=== PATIENT | male | born 1970 | race Caucasian/White ===

== ENCOUNTER 2018-03-07 14:02 | Outpatient (CLI) | payer BC ==
[2018-03-07 14:18] LABS: BASOPHILS # (AUTO) 0.1 10^3/uL (0.0-0.1); BASOPHILS % (AUTO) 0.7 %; EOSINOPHILS # (AUTO) 0.3 10^3/uL (0.0-0.7); EOSINOPHILS % (AUTO) 2.9 %; HGB - HEMOGLOBIN 14.5 g/dL (14.0-18.0); LYMPHOCYTES # (AUTO) 2.6 10^3/uL (1.5-3.5); LYMPHOCYTES % (AUTO) 27.4 %; MEAN CORPUSCULAR HGB CONC 34.3 g/dL (32.0-36.0); MEAN CORPUSCULAR VOLUME 87.4 fL (80.0-94.0); MEAN PLATELET VOLUME 7.3 fL (7.4-11.4); MONOCYTES # (AUTO) 0.7 10^3/uL (0.0-1.0); MONOCYTES % (AUTO) 7.8 %; NEUTROPHILS # (AUTO) 5.8 10^3/uL (1.5-6.6); NEUTROPHILS % (AUTO) 61.2 %; PLT - PLATELET COUNT 285 10^3/uL (130-450); RED BLOOD COUNT 4.82 10^6/uL (4.70-6.10); RED CELL DISTRIBUTION WIDTH 12.8 % (12.0-15.0); WHITE BLOOD COUNT 9.5 x10^3/uL (4.8-10.8)
[2018-03-07 14:28] LABS: ALBUMIN 4.5 g/dL (3.2-5.5); ALBUMIN/GLOBULIN RATIO 1.5 (1.0-2.2); BILIRUBIN,TOTAL 1.1 mg/dL (0.2-1.0); CALCIUM 9.4 mg/dL (8.5-10.3); CREATININE 0.9 mg/dL (0.6-1.2); TOTAL PROTEIN 7.6 g/dL (6.7-8.2)
== END 2018-03-07 14:03 | disposition home or self-care (01) ==
LOC: LAB 14:02
PROVIDERS: ATTEND Specialist
DX: R22.1 Localized swelling, mass and lump, neck (principal)
CPT/HCPCS: 36415; 80053; 85025; 85651

== ENCOUNTER 2018-03-07 20:42 | Outpatient (CLI) | payer BC ==
--- NOTE | 2018-03-07 22:14 | Ultrasound Report ---
Reason: NECK MASS RIGHT Procedure Date: 03/07/2018 Accession Number: [id number] / [id number] Procedure: US - Head or Neck Soft Tissue CPT Code: FULL RESULT: EXAM: NECK ULTRASOUND EXAM DATE: 03/07/2018 09:05 PM. CLINICAL HISTORY: NECK MASS RIGHT. COMPARISON: None. TECHNIQUE: Real-time sonographic imaging was performed by the certified ophthalmic surgical assistant utilizing color-flow. Multiple publications sales representative static images were saved for review. FINDINGS: Complex heterogeneous mass is seen in the right submandibular area measuring 2.0 x 3.4 x 2.3 cm. Vascularity is seen within the mass. No fluid collection is identified. IMPRESSION: 1. Complex heterogeneous mass with blood flow, possibly within the right submandibular gland, measuring 2.0 x 3.4 x 2.3 cm. This could represent neoplasm. 2. Recommend CT or MRI for further evaluation. RADIA
== END 2018-03-07 20:43 | disposition home or self-care (01) ==
LOC: DI 20:42
PROVIDERS: ATTEND Specialist
DX: R22.1 Localized swelling, mass and lump, neck (principal)
CPT/HCPCS: 36415; 76536; 80053; 85025; 85651

== ENCOUNTER 2018-03-09 08:45 | Emergency (ER) | payer BC ==
[2018-03-09] MEDS ORDERED: IOPAMIDOL-300 100 ML VIAL IVP ONE ×2 (08:46→10:51)
[2018-03-09] MEDS ORDERED: fentaNYL 100 MCG/2 ML VIAL IVP STA (09:26)
[2018-03-09 09:40] LABS: BASOPHILS # (AUTO) 0.1 10^3/uL (0.0-0.1); BASOPHILS % (AUTO) 0.8 %; EOSINOPHILS # (AUTO) 0.3 10^3/uL (0.0-0.7); EOSINOPHILS % (AUTO) 3.8 %; HGB - HEMOGLOBIN 14.9 g/dL (14.0-18.0); LYMPHOCYTES # (AUTO) 2.4 10^3/uL (1.5-3.5); LYMPHOCYTES % (AUTO) 33.5 %; MEAN CORPUSCULAR HEMOGLOBIN 29.9 pg (27.0-31.0); MEAN CORPUSCULAR HGB CONC 34.7 g/dL (32.0-36.0); MEAN CORPUSCULAR VOLUME 86.1 fL (80.0-94.0); MEAN PLATELET VOLUME 7.2 fL (7.4-11.4); MONOCYTES # (AUTO) 0.6 10^3/uL (0.0-1.0); MONOCYTES % (AUTO) 8.6 %; NEUTROPHILS # (AUTO) 3.9 10^3/uL (1.5-6.6); NEUTROPHILS % (AUTO) 53.3 %; PLT - PLATELET COUNT 271 10^3/uL (130-450); RED CELL DISTRIBUTION WIDTH 12.9 % (12.0-15.0); WHITE BLOOD COUNT 7.3 x10^3/uL (4.8-10.8)
[2018-03-09] MEDS ORDERED: IOPAMIDOL-300 100 ML VIAL ONE (09:40)
[2018-03-09 09:52] LABS: INR 1.1 (0.8-1.2); PT - PROTHROMBIN TIME 12.2 secs (9.9-12.6)
[2018-03-09 09:57] LABS: ALBUMIN 4.6 g/dL (3.2-5.5); ALBUMIN/GLOBULIN RATIO 1.4 (1.0-2.2); CALCIUM 9.8 mg/dL (8.5-10.3); CREATININE 0.9 mg/dL (0.6-1.2); TOTAL PROTEIN 7.8 g/dL (6.7-8.2)
[2018-03-09 10:15] LABS: THYROID STIMULATING HORMONE 5.06 uIU/mL (0.34-5.60)
[2018-03-09 10:17] LABS: FREE T4 (FREE THYROXINE) 0.65 ng/dL (0.58-1.64)
--- NOTE | 2018-03-09 11:01 | ED Physician Documentation ---
History of Present Illness - Stated complaint Stated Complaint: LUMP ON NECK/PX - Chief complaint Chief Complaint: Heent - Additonal information Additional information: 48-year-old male presents the emergency department with increasing pain and swelling of his right neck. The patient noticed a mass under his right lower jaw 7 days ago and the pain and swelling have significantly increased. The patient reports trouble opening his mouth fully. The patient denies no change in his voice. The patient is able to swallow. Symptoms are described as severe. No triggering factors. No relieving factors. The patient had an ultrasound performed yesterday as an outpatient and was recommended to have a CT scan to further evaluate the abnormality seen on ultrasound. No other associated symptoms. No radiation of the pain Review of Systems Constitutional: denies: Fever, Chills Eyes: denies: Discharge Ears: denies: Ear pain Nose: denies: Congestion Throat: denies: Sore throat Cardiac: denies: Chest pain / pressure Respiratory: denies: Cough GI: denies: Abdominal Pain : denies: Dysuria Skin: denies: Rash Musculoskeletal: reports: Neck pain Neurologic: denies: Generalized weakness Immunocompromised: denies: Chemotherapy PD PAST MEDICAL HISTORY - Past Surgical History Past Surgical History: No General: Other - Present Medications Home Medications: Ambulatory Orders Medication Instructions Recorded Confirmed Doxycycline Hyclate 100 mg PO DAILY #7 capsule 01/09/16 Amox/Clav 875/125 [Augmentin] 1 each PO Q12H #20 tablet 03/09/18 HYDROcod/ACETAM 5/325 [[place] 5/325] 1 each PO Q6H PRN #20 tablet 03/09/18 predniSONE [Prednisone] 60 mg PO DAILY #10 tablet 03/09/18 - Allergies Allergies/Adverse Reactions: Allergies Allergy/AdvReac Type Severity Reaction Status Date / Time Penicillins Allergy Unknown Verified 01/09/16 11:19 - Social History Does the pt smoke?: No Smoking Status: Never smoker Does the pt drink ETOH?: Yes Does the pt have substance abuse?: No - Immunizations Immunizations are current?: Yes Immunizations: TDAP current <10years PD ED PE NORMAL - General General: Alert and oriented X 3, No acute distress - HEENT HEENT: Atraumatic, PERRL, EOMI, Ears normal - Cardiac Cardiac: RRR, Strong equal pulses - Respiratory Respiratory: No respiratory distress - Back Back: No CVA TTP - Derm Derm: Normal color - Extremities Extremities: No deformity, Normal ROM s pain - Neuro Neuro: Alert and oriented X 3, Normal speech - Psych Psych: Normal affect PD ED PE EXPANDED - HEENT HEENT Visual: 1 - swelling (The patient has a large tender fixed area of swelling. There is no surrounding erythema or fluctuance. The area is quite tender to palpation. There is no other palpable lymph nodes. The patient has no stridor on examination. The patient is able to open his mouth and I am able to visualize the posterior pharynx. The tongue is within normal limits and moist and soft. The floor the mouth is moist and soft. There is no dental abnormalities, no gingival swelling and no intraoral abscess), tenderness - Neck Neck: Soft tissue TTP Results - Vitals Vitals: Vital Signs - 24 hr 03/09/18 03/09/18 03/09/18 08:56 11:09 13:38 Temperature 36.6 C Heart Rate 58 L 60 56 L Respiratory 14 15 16 Rate Blood Pressure 144/91 H 137/82 H 126/83 H O2 Saturation 100 95 97 Oxygen O2 Source Room air - Labs Labs: Laboratory Tests 03/09/18 03/09/18 03/09/18 09:33 09:33 09:33 WBC 7.3 RBC 5.00 Hgb 14.9 Hct 43.0 MCV 86.1 MCH 29.9 MCHC 34.7 RDW 12.9 Plt Count 271 MPV 7.2 L Neut # (Auto) 3.9 Lymph # (Auto) 2.4 Hickman # (Auto) 0.6 Eos # (Auto) 0.3 Baso # (Auto) 0.1 Absolute Nucleated RBC 0.01 Nucleated RBC % 0.1 ESR PT 12.2 INR 1.1 APTT 30.3 Sodium 138 Potassium 4.5 Chloride 102 Carbon Dioxide 27 Anion Gap 9.0 BUN 14 Creatinine 0.9 Estimated GFR (MDRD) 91 Glucose 121 H Calcium 9.8 Total Bilirubin 1.0 AST 32 ALT 53 Alkaline Phosphatase 62 Total Creatine Kinase 134 C-Reactive Protein Total Protein 7.8 Albumin 4.6 Globulin 3.2 Albumin/Globulin Ratio 1.4 Lipase 29 TSH Free T4 03/09/18 03/09/18 03/09/18 09:33 09:33 09:33 WBC RBC Hgb Hct MCV MCH MCHC RDW Plt Count MPV Neut # (Auto) Lymph # (Auto) Hickman # (Auto) Eos # (Auto) Baso # (Auto) Absolute Nucleated RBC Nucleated RBC % ESR 10 PT INR APTT Sodium Potassium Chloride Carbon Dioxide Anion Gap BUN Creatinine Estimated GFR (MDRD) Glucose Calcium Total Bilirubin AST ALT Alkaline Phosphatase Total Creatine Kinase C-Reactive Protein < 1.0 Total Protein Albumin Globulin Albumin/Globulin Ratio Lipase TSH 5.06 Free T4 0.65 - Rads (name of study) CT Neck/Chest Radiology: Final report received, See rad report PD MEDICAL DECISION MAKING - ED course ED course: The patient had an ultrasound which was performed yesterday and I was able to review the results. The ultrasound showed concern for a neoplasm and today the patient had a CT of his neck and chest performed presuming that there could be mediastinal involvement. The patient's workup showed sialoadenitis of the submandibular gland. I discussed the case with the ENT from [facility] Dr. Armando Rivera who recommends starting the patient on prednisone, Augmentin and narcotic pain management. He agrees to follow the patient up this Sunday for definitive management. On reevaluation the patient is resting comfortably, I discussed with him and his the findings and plan and they are comfortable with this plan. The patient appears appropriate for discharge since there is no evidence of sepsis, airway involvement or trismus. I discussed with the patient has the incidental findings of pulmonary nodules and recommended a follow-up study in 12 months. I discussed warning signs and recommended returning to the emergency department immediately for any worsening or any concerns. Departure - Departure Disposition: 01 Home, Self Care Clinical Impression: Sialoadenitis of submandibular gland, Neck swelling, Pulmonary nodules Condition: Good Instructions: ED Nodule Solitary Pulmonary, ED Sublingual Gland Obstruction Follow-Up: Armando Rivera MD [Physician No Access] - 03/19/18 (Please call Dr. Rivera's office first thing on Sunday for an appointment this Sunday. Please tell the office that I spoke with Dr. Rivera and he wants to see you in clinic on [address] for further management of your findings today) Prescriptions: Amox/Clav 875/125 [Augmentin] 1 each PO Q12H #20 tablet HYDROcod/ACETAM 5/325 [[place] 5/325] 1 each PO Q6H PRN #20 tablet PRN Reason: Pain predniSONE [Prednisone] 60 mg PO DAILY #10 tablet Comments: Please return to the Emergency Department for worsening symptoms or any concerns
--- NOTE | 2018-03-09 11:14 | CT Report ---
Reason: neck swelling, abnormal US Procedure Date: 03/09/2018 Accession Number: [id number] / [id number] Procedure: CT - Neck Soft Tissue W/ CPT Code: FULL RESULT: SOFT TISSUE NECK CT WITH CONTRAST INDICATION: 48-year-old male with neck mass. Ultrasound suggests possible neoplasm in the right submandibular gland. TECHNIQUE: 80 mL of Isovue 300 contrast were injected intravenously. The neck was scanned helically and data was reconstructed into 2 mm axial images. In addition, sagittal and coronal re-formations have been generated. In accordance with CT protocol optimization, one or more of the following dose reduction techniques were utilized for this exam: automated exposure control, adjustment of mA and/or KV based on patient size, or use of iterative reconstructive technique. COMPARISON: None. FINDINGS: There is a roughly 13.5 mm long by 7 mm wide densely calcified calculus, in the proximal aspect of the duct for the right submandibular gland. It is almost certainly obstructing the duct for the gland. No obvious dilated intraglandular ducts are demonstrated on CT; however, review of recent ultrasound suggests that there probably is mild dilation of the ducts within the gland. No increased enhancement of the gland is identified when compared to the contralateral side. However, there appears to be a small amount of fluid in the submandibular space, surrounding the gland, likely representing edema. No well-circumscribed, peripherally enhancing fluid collection is seen in the right submandibular space to suggest abscess. The left submandibular gland has a normal appearance. The parotid glands are unremarkable. The nasopharyngeal and oropharyngeal soft tissue contours are symmetric. There is symmetric enlargement of the palatine tonsils with associated narrowing of the airway. No high-grade airway compromise is demonstrated. No lesion is identified. There is symmetric enlargement of the lingual tonsil with associated effacement of both valleculae. The epiglottis has a normal appearance. There is paramedian displacement of both vocal folds, limiting evaluation of the larynx. This presumably relates to phase of phonation or respiration. No obvious mass lesion is demonstrated. The hypopharynx is unremarkable. The imaged trachea is patent. The thyroid has a normal appearance. The carotid and vertebral arteries are patent. Both internal jugular veins appear widely patent. Multiple well-circumscribed, homogeneous lymph nodes are identified in the anterior triangles of the neck bilaterally. A few of these appear to meet the size criterion for malignancy. For example, the left jugulodigastric node (image 61 of series #2) measures 1.55 x 0.8 cm. In addition, a left level 2b lymph node (image 66 of series #2) measures about 1.1 x 0.55 cm. These lymph nodes are indeterminate for possible malignancy. No necrotic or suppurative lymph nodes are identified. No focal mass/nodule is seen in the imaged upper lungs. No worrisome lymphadenopathy is seen in the imaged mediastinum. Degenerative changes are demonstrated in the lower cervical spine. The regional bony structures are otherwise unremarkable. No lytic or destructive bone lesion is demonstrated. The middle ear cavities and mastoid air cells appear clear. The imaged paranasal sinuses are essentially clear. No mass is demonstrated in either orbit. No obvious acute pathology is seen in the imaged brain. IMPRESSION: There is a fairly large calculus in the proximal right [place] duct. The calculus is almost certainly obstructing the duct for the submandibular gland. There is a small amount of edema surrounding the gland in the right submandibular space suggesting the possibility of active sialoadenitis. Clinical correlation is advised. Imaging of the submandibular glands is otherwise unremarkable. In particular, there is no evidence of a neoplasm in the right submandibular gland. In addition, no abscess is demonstrated in the right submandibular space.
--- NOTE | 2018-03-09 11:38 | CT Report ---
Reason: neck swelling, abnormal US Procedure Date: 03/09/2018 Accession Number: [id number] / [id number] Procedure: CT - Chest W/ CPT Code: FULL RESULT: EXAM: CT CHEST EXAM DATE: 03/09/2018 10:53 AM. CLINICAL HISTORY: Neck swelling, abnormal US. COMPARISONS: Neck ultrasound from 03/07/2018. TECHNIQUE: Routine helical CT imaging was performed through the chest. IV contrast: 80 cc Isovue 300. Reconstructions: Coronal and sagittal. In accordance with CT protocol optimization, one or more of the following dose reduction techniques were utilized for this exam: automated exposure control, adjustment of mA and/or KV based on patient size, or use of iterative reconstructive technique. FINDINGS: Examination was performed in conjunction with CT of the neck, which is reported separately. Lungs/Pleura: Several subcentimeter pulmonary nodes are present, as follows: 1. A 4 mm juxtapleural nodule in the posterior segment of the right upper lobe (series 5, image 17). 2. A 4 mm juxtapleural nodule in the anterior segment of the right upper lobe (series 5, image 23). 3. A 4 mm nodule along the right minor fissure (series 5, image 26). 4. A 4 mm juxtapleural nodule in the superior segment of the left lower lobe (series 4, image 26). 5. A 2 mm nodule in the lateral basilar segment of the right lower lobe (series 5, image 33). 6. A 3 mm nodule in the lateral basilar segment of the left lower lobe (series 5, image 41). Mild linear atelectasis present in the lower lobes. The lungs are otherwise clear. No airspace opacity or consolidation demonstrated. The central airways are patent. There is no pleural effusion. Mediastinum: Heart size is within normal limits. There is no pericardial effusion. There is minimal wispy tissue in the anterior mediastinum, which may represent thymic remnant. No mediastinal or hilar adenopathy. The thoracic aorta is normal in caliber. Bones: No suspicious osseous lesion. Visualized Abdomen: There is diffuse low-attenuation of the liver, compatible with steatosis. Remainder of visualized upper abdomen is unremarkable. Other: No axillary or supraclavicular adenopathy. IMPRESSION: 1. Neck is reported separately. However, there appears to be sialadenitis of the right submandibular gland secondary to a prominent calculus. Please see separate neck CT report for further details. 2. Multiple subcentimeter pulmonary nodules, which may represent lymph nodes given their location and configuration. Given findings of inflammatory rather than neoplastic process in the neck, follow-up is based on Fleischner Society guidelines. Optional 12 month follow-up chest CT in patients with high risk of lung cancer; no further follow-up in low risk patients. 3. Hepatic steatosis. RADIA
[2018-03-09] MEDS ORDERED: HYDROcod/ACETAM 5/325 MG TABLET PO STA (12:08)
[2018-03-09] MEDS ORDERED: predniSONE 20 MG TABLET PO STA (12:08)
[2018-03-09] MEDS ORDERED: AMOX/CLAV 875 MG/125 MG TABLET PO STA (12:32)
[2018-03-09 13:40] VITALS: BP 126/83
== END 2018-03-09 13:39 | disposition home or self-care (01) ==
LOC: ED 08:45
DX: K11.20 Sialoadenitis, unspecified (principal); R91.1 Solitary pulmonary nodule
CPT/HCPCS: 36415; 70491; 71260; 80053; 82550; 83690; 84439; 84443; 85025; 85610; 85651; 85730; 86140; 96374; 99284; A9270; J7512; Q9967

== ENCOUNTER 2018-05-22 06:22 | Emergency (ER) | payer BC ==
[2018-05-22] MEDS ORDERED: DEXAMETHASONE 10 MG/ML VIAL IVP STA (07:15)
[2018-05-22 07:53] LABS: BASOPHILS % (AUTO) 0.5 %; EOSINOPHILS # (AUTO) 0.2 10^3/uL (0.0-0.7); EOSINOPHILS % (AUTO) 3.1 %; HGB - HEMOGLOBIN 14.4 g/dL (14.0-18.0); LYMPHOCYTES # (AUTO) 2.2 10^3/uL (1.5-3.5); LYMPHOCYTES % (AUTO) 36.6 %; MEAN CORPUSCULAR HEMOGLOBIN 29.2 pg (27.0-31.0); MEAN CORPUSCULAR HGB CONC 33.2 g/dL (32.0-36.0); MEAN CORPUSCULAR VOLUME 87.9 fL (80.0-94.0); MEAN PLATELET VOLUME 7.2 fL (7.4-11.4); MONOCYTES # (AUTO) 0.7 10^3/uL (0.0-1.0); NEUTROPHILS # (AUTO) 2.9 10^3/uL (1.5-6.6); NEUTROPHILS % (AUTO) 48.8 %; PLT - PLATELET COUNT 269 10^3/uL (130-450); RED BLOOD COUNT 4.93 10^6/uL (4.70-6.10); RED CELL DISTRIBUTION WIDTH 13.3 % (12.0-15.0)
[2018-05-22 08:01] LABS: ALBUMIN 4.5 g/dL (3.2-5.5); ALBUMIN/GLOBULIN RATIO 1.6 (1.0-2.2); BILIRUBIN,TOTAL 1.1 mg/dL (0.2-1.0); CALCIUM 9.3 mg/dL (8.5-10.3); CREATININE 0.8 mg/dL (0.6-1.2); TOTAL PROTEIN 7.4 g/dL (6.7-8.2)
--- NOTE | 2018-05-22 08:05 | ED Physician Documentation ---
History of Present Illness - Stated complaint Stated Complaint: FACIAL SWELLING - Chief complaint Chief Complaint: Heent - Additonal information Additional information: 48-year-old male presents the emergency department with complaints of lip swelling and right facial swelling for the past several days. The patient awoke on Sunday with lip swelling which is not improved and now has some right facial swelling. The patient is status post the removal of the right submandibular gland on April 04, 2018. The patient denies any facial redness or fevers or difficulty swallowing or swelling of the tongue or voice changes. Symptoms are described as moderate. No improvement with Benadryl. No other associated symptoms. Review of Systems Constitutional: denies: Fever, Chills Eyes: denies: Discharge Ears: denies: Ear pain Nose: denies: Congestion Throat: denies: Oral lesions / sores, Sore throat Cardiac: denies: Chest pain / pressure Respiratory: denies: Dyspnea, Cough GI: denies: Abdominal Pain, Nausea : denies: Dysuria Skin: denies: Rash, Lesions Musculoskeletal: denies: Neck pain Neurologic: denies: Numbness Immunocompromised: denies: Chemotherapy PD PAST MEDICAL HISTORY - Past Medical History Past Medical History: No - Past Surgical History Past Surgical History: Yes General: Other - Present Medications Home Medications: Ambulatory Orders Medication Instructions Recorded Confirmed Methylprednisolone [Medrol] 4 mg PO DAILY #1 tab.ds.pk 05/22/18 - Allergies Allergies/Adverse Reactions: Allergies Allergy/AdvReac Type Severity Reaction Status Date / Time No Known Drug Allergies Allergy Verified 05/22/18 06:30 - Social History Does the pt smoke?: No Smoking Status: Never smoker Does the pt drink ETOH?: Yes Does the pt have substance abuse?: No - Immunizations Immunizations are current?: Yes Immunizations: TDAP current <10years - POLST Patient has POLST: No PD ED PE NORMAL - General General: Alert and oriented X 3, No acute distress - HEENT HEENT: Atraumatic, PERRL, EOMI, Ears normal - Cardiac Cardiac: RRR, Strong equal pulses - Respiratory Respiratory: No respiratory distress, Clear bilaterally - Abdomen Abdomen: Soft, Non tender - Derm Derm: Normal color - Extremities Extremities: No deformity, No tenderness to palpate - Neuro Neuro: Alert and oriented X 3, Normal speech - Psych Psych: Normal mood PD ED PE EXPANDED - HEENT HEENT: Other (The tongue is within normal limits, the posterior pharynx is within normal limits, the patient has a normal voice and there is no stridor) HEENT Visual: 1 - swelling (The patient has bilateral lip swelling of the upper and lower lip. There is slight swelling to the right face. There is no erythematous changes or signs of acute cellulitis, The surgical wound is clean dry and intact there is no evidence of acute abscess or acute fluid collection) Results - Vitals Vitals: Vital Signs - 24 hr 05/22/18 06:25 Temperature 36.9 C Heart Rate 66 Respiratory 18 Rate Blood Pressure 131/78 H O2 Saturation 97 Oxygen O2 Source Room air - Labs Labs: Laboratory Tests 05/22/18 05/22/18 07:35 07:35 WBC 6.0 RBC 4.93 Hgb 14.4 Hct 43.3 MCV 87.9 MCH 29.2 MCHC 33.2 RDW 13.3 Plt Count 269 MPV 7.2 L Neut # (Auto) 2.9 Lymph # (Auto) 2.2 Banner # (Auto) 0.7 Eos # (Auto) 0.2 Baso # (Auto) 0.0 Absolute Nucleated RBC 0.00 Nucleated RBC % 0.1 Sodium 137 Potassium 3.9 Chloride 105 Carbon Dioxide 24 Anion Gap 8.0 BUN 12 Creatinine 0.8 Estimated GFR (MDRD) 104 Glucose 116 H Calcium 9.3 Total Bilirubin 1.1 H AST 27 ALT 54 Alkaline Phosphatase 53 Total Protein 7.4 Albumin 4.5 Globulin 2.9 Albumin/Globulin Ratio 1.6 Lipase 35 - Rads (name of study) CT Face w/ contrast Radiology: Final report received (1. Ill-defined somewhat stellate soft tissue in the submandibular space on the right, reticulation of the fat adjacent to the submandibular space as well as deep and superficial to a thickened platysma muscle might well be postsurgical in nature. An infection at the site ofrecent surgery is not excluded. 2. Suspect a 14 mm soft tissuevnodule dorsal to the hyoid extending inferiorly to the hyaloid to reflect a complex thyroglossal duct cyst. Ultrasound could confirm that this is indeed cystic and exclude a solid ) PD MEDICAL DECISION MAKING - ED course ED course: A CT scan of the face was performed given the recent head and neck surgery and the new swelling of the face To help evaluate for an acute postoperative issue The case is discussed with the patient's head and neck surgeon from [facility] Dr. Luong, he was able to independently review the CT images from today and the prior CT images. Since the patient is 6 weeks out from surgery and has a normal white blood cell count he does not feel that this represents an acute infectious process. He thinks that this still may be postoperative swelling and recommends Placed in the patient on a Medrol Dosepak to help with his symptoms. Regarding the findings of a thyroglossal duct cyst he does not feel that the patient needs a ultrasound and recommends follow-up in his clinic for further management of this finding. I discussed the findings and plan with the patient he understands and agrees to the plan. Presently the patient appears appropriat e for ongoing outpatient management Departure - Departure Disposition: 01 Home, Self Care Clinical Impression: Facial swelling, Thyroglossal duct cyst Condition: Good Instructions: Thyroglossal Cyst Prescriptions: Methylprednisolone [Medrol] 4 mg PO DAILY #1 tab.ds.pk Comments: Please call to schedule a follow-up appointment with your head and neck surgeon at [facility] Dr. Luong for soon as possible Please return to the emergency department immediately for any worsening or any concerns.
--- NOTE | 2018-05-22 08:54 | CT Report ---
Reason: facial swelling Procedure Date: 05/22/2018 Accession Number: [id number] / [id number] Procedure: CT - Facial Bones W/ CPT Code: FULL RESULT: EXAM: CT MAXILLOFACIAL WITH CONTRAST EXAM DATE: 05/22/2018 08:28 AM. CLINICAL HISTORY: Facial swelling. COMPARISONS: Ultrasound of the neck 03/07/2018. TECHNIQUE: Thin-section axial images were acquired of the face after administration of intravenous contrast. Post-processing: Coronal and sagittal reformats. Other: None. IV contrast: 90 cc Optiray 320. In accordance with CT protocol optimization, one or more of the following dose reduction techniques were utilized for this exam: automated exposure control, adjustment of mA and/or KV based on patient size, or use of iterative reconstructive technique. FINDINGS: The right submandibular gland is surgically absent. There is stellate soft tissue in the right submandibular space. Nonenlarged lymph nodes are seen in the right submandibular space measuring up to 4 mm short axis. These contain fatty cheryl. There is a thickened appearance to the right platysma muscle and there is some reticulation of the fat of the right neck just below the level of the submandibular space with a slightly thickened appearance to the skin. A discrete ring-enhancing fluid collection is not seen in the submandibular space. No ring-enhancing fluid collection is seen in the floor of mouth. Nonenlarged lymph nodes are seen bilaterally at level II. These were present on the comparison study. The left submandibular gland demonstrates no mass. No mass is present in either parotid gland and there is no inflammatory change adjacent to either parotid gland. No mass is identified in either orbit. No mass is present in the nasopharynx. The parapharyngeal fat is symmetric. No ring-enhancing fluid collection is seen associated with either palatine tonsil. Expected enhancement is seen in the internal jugular vein bilaterally. No enhancing mass is seen in the visualized brain. In the midline beginning at the level of the hyoid and extending inferiorly is a well-circumscribed 7 mm anterior-posterior by 14 mm craniocaudal soft tissue fullness. The adjacent fat demonstrates no inflammatory change. No suspicious lytic or blastic region is seen in the mandible. Bilateral maxillary sinus and ethmoid air cell mucosal thickening is seen. Mucosal thickening is seen in the inferior aspect of each frontal sinus. Degenerative disk disease and osteophyte formation are seen at C5-C6 and at C6-C7. IMPRESSION: 1. Ill-defined, somewhat stellate soft tissue in the submandibular space on the right, reticulation in the fat adjacent to the submandibular space as well as deep and superficial to a thickened platysma muscle might well be postsurgical in nature. An infection at the site of recent surgery is not excluded. 2. Suspect a 14 mm soft tissue nodule dorsal to the hyoid extending inferiorly to the hyoid to reflect a complex thyroglossal duct cyst. Ultrasound could confirm that this is indeed cystic and exclude a solid mass. 3. Paranasal sinus mucosal disease discussed above. RADIA
[2018-05-22 09:43] VITALS: BP 139/90
[2018-05-22] MEDS ORDERED: IOVERSOL 320 100 ML VIAL IVP ONE (09:48)
== END 2018-05-22 09:43 | disposition home or self-care (01) ==
LOC: ED 06:22
DX: R22.9 Localized swelling, mass and lump, unspecified (principal); Q89.2 Congenital malformations of other endocrine glands; Z98.890 Other specified postprocedural states; R22.0 Localized swelling, mass and lump, head
CPT/HCPCS: 36415; 70487; 80053; 83690; 85025; 96374; 99283; Q9967

== ENCOUNTER 2018-08-02 19:00 | Emergency (ER) | payer BC ==
--- NOTE | 2018-08-02 19:46 | ED Physician Documentation ---
PD HPI HEENT - Stated complaint Stated Complaint: LIP SWELLING - Chief complaint Chief Complaint: General - History obtained from History obtained from: Patient - History of Present Illness Timing - onset: Today Timing - duration: Hours Timing - details: Abrupt onset, Still present Location: Other (lower lip, initially left side, then to whole of it.) Improves: No: Medication (tried benadryl at home.) Associated symptoms: Facial swelling (just lower lip). No: Fever, Congestion, Unable to swallow Similar symptoms before: Diagnosis (angioedema and has improved in 1-2 days previous episodes.) Recently seen: Not recently seen Review of Systems Constitutional: denies: Fever, Chills, Myalgias Nose: denies: Rhinorrhea / runny nose, Congestion Throat: denies: Sore throat Respiratory: denies: Dyspnea, Cough GI: denies: Nausea, Vomiting, Diarrhea Skin: denies: Abrasion (s), Laceration (s) Musculoskeletal: denies: Neck pain, Back pain Neurologic: denies: Generalized weakness PD PAST MEDICAL HISTORY - Past Medical History Cardiovascular: None Respiratory: None Neuro: None Endocrine/Autoimmune: None Derm: Other (prior episodes of lip angioedema in the past. ) - Past Surgical History Past Surgical History: Yes General: Other - Present Medications Home Medications: Ambulatory Orders Medication Instructions Recorded Confirmed Dexamethasone [Decadron] 4 mg PO DAILY #5 tablet 08/02/18 - Allergies Allergies/Adverse Reactions: Allergies Allergy/AdvReac Type Severity Reaction Status Date / Time No Known Drug Allergies Allergy Verified 08/02/18 19:07 - Social History Does the pt smoke?: No Smoking Status: Never smoker Does the pt drink ETOH?: Yes Does the pt have substance abuse?: No - Immunizations Immunizations are current?: Yes Immunizations: TDAP current <10years - POLST Patient has POLST: No PD ED PE NORMAL - Vitals Vital signs reviewed: Yes - General General: Alert and oriented X 3, No acute distress, Well developed/nourished - HEENT HEENT: Moist mucous membranes, Pharynx benign, Other (There is obvious swelling of the lower lip more to the left side. No swelling of the tongue palate or uvula. He has a normal voice and normal breathing.) - Neck Neck: Supple, no meningeal sign, No adenopathy, No JVD - Cardiac Cardiac: RRR, No murmur - Respiratory Respiratory: Clear bilaterally - Back Back: No CVA TTP - Derm Derm: Normal color, Warm and dry, No rash - Extremities Extremities: Normal ROM s pain, No edema - Neuro Neuro: Alert and oriented X 3, No motor deficit, Normal speech Results - Vitals Vitals: Vital Signs - 24 hr 08/02/18 08/02/18 19:05 22:14 Temperature 37.2 C Heart Rate 95 95 Respiratory 20 18 Rate Blood Pressure 141/84 H 138/80 H O2 Saturation 96 96 Oxygen O2 Source Room air - Labs Labs: Laboratory Tests 08/02/18 08/02/18 08/02/18 20:23 20:23 20:23 WBC 7.5 RBC 4.83 Hgb 14.3 Hct 41.3 L MCV 85.4 MCH 29.6 MCHC 34.7 RDW 13.0 Plt Count 231 MPV 7.2 L Neut # (Auto) 4.2 Lymph # (Auto) 2.3 Maries # (Auto) 0.7 Eos # (Auto) 0.2 Baso # (Auto) 0.1 Absolute Nucleated RBC 0.00 Nucleated RBC % 0.0 ESR 4 C-Reactive Protein < 1.0 PD MEDICAL DECISION MAKING - ED course Complexity details: re-evaluated patient (He has had minimal improvement with antihistamines. Offered trying epinephrine and that was given IM without any real improvement either. He has had minimal progression and really is just having the edema of the lower lip still. He does not have any swelling of the throat or tongue and no dyspnea. He has been given oral steroids. He has been here long enough to evaluate if this could be significant progression. He is comfortable going home at this time.), considered differential (He has had several occurrences of angioedema of the lip and submandibular area without apparent trigger or cause. He is not on any medications and no NSAIDs nor blood pressure medicines. There is not been a common food source prior to these episodes. He has not had any prior swelling of the lips tongue or throat. These may be histamine mediated though there is not an obvious trigger. Otherwise consider complement mediated. He is not aware of a family history of similar episodes.), d/w patient Departure - Departure Disposition: 01 Home, Self Care Clinical Impression: Angioedema of lips Qualifiers: Encounter type: initial encounter Qualified Code(s): T78.3XXA - Angioneurotic edema, initial encounter Condition: Stable Record reviewed to determine appropriate education?: Yes Instructions: ED Angioedema Follow-Up: JEZ OVERTON [Primary Care Provider] - Prescriptions: Dexamethasone [Decadron] 4 mg PO DAILY #5 tablet Comments: Home and rest. Return if he develops swelling of the tongue throat or any trouble breathing. Continue the Decadron steroid daily for 5 more days. Follow-up with your primary care next week to have them follow-up on the blood tests I did xenia. Discharge Date/Time: 08/02/18 22:15
[2018-08-02] MEDS ORDERED: CETIRIZINE 10 MG TABLET PO STA (20:01)
[2018-08-02] MEDS ORDERED: DEXAMETHASONE 10 MG/ML VIAL PO STA ×2 (20:01→22:02)
[2018-08-02] MEDS ORDERED: diphenhydrAMINE ELIXIR 25 MG/10 ML UDC PO STA (20:01)
[2018-08-02 20:32] LABS: BASOPHILS # (AUTO) 0.1 10^3/uL (0.0-0.1); BASOPHILS % (AUTO) 0.7 %; EOSINOPHILS # (AUTO) 0.2 10^3/uL (0.0-0.7); EOSINOPHILS % (AUTO) 2.7 %; HGB - HEMOGLOBIN 14.3 g/dL (14.0-18.0); LYMPHOCYTES # (AUTO) 2.3 10^3/uL (1.5-3.5); LYMPHOCYTES % (AUTO) 31.3 %; MEAN CORPUSCULAR HEMOGLOBIN 29.6 pg (27.0-31.0); MEAN CORPUSCULAR HGB CONC 34.7 g/dL (32.0-36.0); MEAN CORPUSCULAR VOLUME 85.4 fL (80.0-94.0); MEAN PLATELET VOLUME 7.2 fL (7.4-11.4); MONOCYTES # (AUTO) 0.7 10^3/uL (0.0-1.0); MONOCYTES % (AUTO) 9.6 %; NEUTROPHILS # (AUTO) 4.2 10^3/uL (1.5-6.6); NEUTROPHILS % (AUTO) 55.7 %; PLT - PLATELET COUNT 231 10^3/uL (130-450); RED BLOOD COUNT 4.83 10^6/uL (4.70-6.10); WHITE BLOOD COUNT 7.5 x10^3/uL (4.8-10.8)
[2018-08-02] MEDS ORDERED: EPINEPHrine 1 MG/ML AMP IM STA (21:22)
[2018-08-02] MEDS ORDERED: KETOROLAC 30 MG/ML VIAL IM STA (21:24)
[2018-08-02] MEDS ORDERED: CHERRY SYRUP 10 ML UDC PO ONE (22:12)
[2018-08-02 22:22] VITALS: BP 138/80
[2018-08-07 15:17] LABS: COMPLEMENT COMPONENT C4C 17 mg/dL (15-53)
== END 2018-08-02 22:15 | disposition home or self-care (01) ==
LOC: ED 19:00
DX: T78.3XXA Angioneurotic edema, initial encounter (principal)
CPT/HCPCS: 36415; 85025; 85651; 86140; 86160; 86161; 96372; 99283; A9270

== ENCOUNTER 2018-08-11 00:32 | Emergency (ER) | payer BC ==
[2018-08-11] MEDS ORDERED: CHERRY SYRUP 10 ML UDC PO ONE (01:14)
[2018-08-11] MEDS ORDERED: DEXAMETHASONE 10 MG/ML VIAL PO STA (01:14)
[2018-08-11] MEDS ORDERED: EPINEPHrine 1 MG/ML AMP IM STA (01:15)
[2018-08-11] MEDS ORDERED: diphenhydrAMINE INJ 50 MG/ML VIAL IM STA (01:15)
--- NOTE | 2018-08-11 01:18 | ED Physician Documentation ---
History of Present Illness - Stated complaint Stated Complaint: FACIAL SWELLING - Chief complaint Chief Complaint: Allergic Rx - History obtained from History obtained from: Patient - History of Present Illness Timing: Today - Additonal information Additional information: 48-year-old male with a history of acquired angioedema has developed angioedema to his upper lip this evening. He has been treated in the [facility] about 1 week ago for similar. He has had a number of these episodes in the last 6 months and prior to that he never had this. Review of Systems Constitutional: denies: Fever Eyes: denies: Decreased vision Ears: denies: Ear pain Nose: denies: Rhinorrhea / runny nose, Congestion Throat: denies: Sore throat Cardiac: denies: Chest pain / pressure, Palpitations Respiratory: denies: Dyspnea, Cough GI: denies: Abdominal Pain, Nausea, Vomiting : denies: Dysuria, Frequency PD PAST MEDICAL HISTORY - Past Medical History Past Medical History: No Cardiovascular: None Respiratory: None Neuro: None Endocrine/Autoimmune: None Derm: Other - Past Surgical History Past Surgical History: Yes General: Other - Present Medications Home Medications: Ambulatory Orders Medication Instructions Recorded Confirmed No Known Home Medications 08/11/18 08/11/18 - Allergies Allergies/Adverse Reactions: Allergies Allergy/AdvReac Type Severity Reaction Status Date / Time No Known Drug Allergies Allergy Verified 08/11/18 00:43 - Social History Does the pt smoke?: No Smoking Status: Never smoker Does the pt drink ETOH?: Yes Does the pt have substance abuse?: No - Immunizations Immunizations are current?: Yes Immunizations: TDAP current <10years - POLST Patient has POLST: No PD ED PE NORMAL - Vitals Vital signs reviewed: Yes (hypertensive mild ) - General General: Alert and oriented X 3, No acute distress, Well developed/nourished - HEENT HEENT: Atraumatic, PERRL, EOMI, Pharynx benign, Dentition benign, Other (obvious swelling of the upper lip on the left side. ) - Neck Neck: Supple, no meningeal sign, No bony TTP - Cardiac Cardiac: RRR, No murmur - Respiratory Respiratory: No respiratory distress, Clear bilaterally - Abdomen Abdomen: Soft, Non tender - Back Back: No CVA TTP, No spinal TTP - Derm Derm: Normal color, Warm and dry, No rash - Extremities Extremities: No deformity, No edema - Neuro Neuro: Alert and oriented X 3, machine i coremaker 2-12 intact, No motor deficit, No sensory deficit, Normal speech Eye Opening: Spontaneous Motor: Obeys Commands Verbal: Oriented GCS Score: 15 - Psych Psych: Normal mood, Normal affect Results - Vitals Vitals: Vital Signs - 24 hr 08/11/18 08/11/18 08/11/18 00:38 00:45 02:10 Temperature 36.6 C Heart Rate 67 16 L 55 L Respiratory 16 16 Rate Blood Pressure 139/90 H 120/70 O2 Saturation 97 94 08/11/18 03:00 Temperature Heart Rate 56 L Respiratory 14 Rate Blood Pressure 113/64 O2 Saturation 96 Oxygen O2 Source Room air PD MEDICAL DECISION MAKING - ED course Complexity details: considered differential, d/w patient ED course: Patient is treated with 0.3 mg of epinephrine IM, dexamethasone 10 mg orally and 25 mg of Benadryl IM. Over a period of 2 hours the patient starts to have some improvement. He will follow-up with Dr. Almonte with the intention of getting into see a specialist to potentially start on treatment. Departure - Departure Disposition: 01 Home, Self Care Clinical Impression: Angioedema of lips Condition: Stable Instructions: ED Angioedema Follow-Up: JEZ ALMONTE [Primary Care Provider] - Discharge Date/Time: 08/11/18 03:20
[2018-08-11 03:01] VITALS: BP 113/64
== END 2018-08-11 03:20 | disposition home or self-care (01) ==
LOC: ED 00:32
DX: T78.3XXA Angioneurotic edema, initial encounter (principal)
CPT/HCPCS: 96372; 99283; A9270; J1200

== ENCOUNTER 2018-11-12 03:11 | Emergency (ER) | payer BC ==
[2018-11-12] MEDS ORDERED: DEXAMETHASONE 10 MG/ML VIAL IVP STA (03:52)
[2018-11-12] MEDS ORDERED: diphenhydrAMINE INJ 50 MG/ML VIAL IVP STA (03:53)
--- NOTE | 2018-11-12 03:55 | ED Physician Documentation ---
History of Present Illness - Stated complaint Stated Complaint: SWOLLEN TONGUE - Chief complaint Chief Complaint: Allergic Rx - History obtained from History obtained from: Patient, Family - History of Present Illness Timing: Enter time (99), Today - Additonal information Additional information: 48-year-old male with history of angioedema has developed a swollen tongue this morning about 1:00 in the morning. He is usually had his angioedema on his face and his lips he is never had on his tongue. He has had this may be 10 times in the past year and he does have some dexamethasone at home. He took 1 4 mg tablet and went back to bed. He continued to have some swelling of his tongue and he has come to the emergency department for evaluation. He feels now that he is arrived here that his tongue is improving. Review of Systems Constitutional: denies: Fever, Chills Eyes: denies: Decreased vision Ears: denies: Ear pain Nose: denies: Rhinorrhea / runny nose, Congestion Throat: reports: Oral lesions / sores (swollen tongue). denies: Sore throat Cardiac: denies: Chest pain / pressure, Palpitations Respiratory: denies: Dyspnea, Cough GI: denies: Abdominal Pain, Nausea, Vomiting : denies: Dysuria, Frequency Skin: denies: Rash PD PAST MEDICAL HISTORY - Past Medical History Past Medical History: No Cardiovascular: None Respiratory: None Neuro: None Endocrine/Autoimmune: None Derm: Other - Past Surgical History Past Surgical History: Yes General: Other - Present Medications Home Medications: Ambulatory Orders Medication Instructions Recorded Confirmed No Known Home Medications 08/11/18 11/12/18 - Allergies Allergies/Adverse Reactions: Allergies Allergy/AdvReac Type Severity Reaction Status Date / Time No Known Drug Allergies Allergy Verified 11/12/18 03:39 - Social History Does the pt smoke?: No Smoking Status: Never smoker Does the pt drink ETOH?: Yes Does the pt have substance abuse?: No - Immunizations Immunizations are current?: Yes Immunizations: TDAP current <10years - POLST Patient has POLST: No PD ED PE NORMAL - Vitals Vital signs reviewed: Yes (hypertension mild ) - General General: Alert and oriented X 3, No acute distress, Well developed/nourished - HEENT HEENT: Atraumatic, PERRL, EOMI, Other (There is some mild swelling to the left side of the tongue. ) - Neck Neck: Supple, no meningeal sign, No bony TTP - Cardiac Cardiac: RRR, No murmur - Respiratory Respiratory: No respiratory distress, Clear bilaterally - Abdomen Abdomen: Soft, Non tender - Back Back: No CVA TTP, No spinal TTP - Derm Derm: Normal color, Warm and dry, No rash - Extremities Extremities: No deformity, No edema, No calf tenderness / cord - Neuro Neuro: Alert and oriented X 3, trade mark attorney 2-12 intact, No motor deficit, No sensory deficit, Normal speech Eye Opening: Spontaneous Motor: Obeys Commands Verbal: Oriented GCS Score: 15 - Psych Psych: Normal mood, Normal affect Results - Vitals Vitals: Vital Signs - 24 hr 11/12/18 11/12/18 11/12/18 03:23 03:36 04:01 Temperature 36.1 C L Heart Rate 54 L 55 L 53 L Respiratory 16 16 17 Rate Blood Pressure 134/70 H 123/83 H O2 Saturation 98 96 11/12/18 05:10 Temperature 36.4 C L Heart Rate 54 L Respiratory 16 Rate Blood Pressure 121/78 O2 Saturation 97 Oxygen O2 Source Room air PD MEDICAL DECISION MAKING - ED course Complexity details: reviewed old records, re-evaluated patient, considered differential, d/w patient, d/w family ED course: 48-year-old male with a history of angioedema recurrent episodes has had another episode this morning with swelling of his tongue he has had some improvement with the 4 mg of dexamethasone he took earlier here in the emergency department he is given an additional 10 mg and 25 mg of Benadryl. He has further improvement in his swelling and is discharged to home. He does have a follow-up with an operational intelligence officer in the works. Departure - Departure Disposition: 01 Home, Self Care Clinical Impression: Angioedema Condition: Stable Instructions: ED Angioedema Follow-Up: JEZ OVERTON [Primary Care Provider] - Discharge Date/Time: 11/12/18 05:11
[2018-11-12 05:10] VITALS: BP 121/78
== END 2018-11-12 05:11 | disposition home or self-care (01) ==
LOC: ED 03:11
DX: T78.3XXA Angioneurotic edema, initial encounter (principal); X58.XXXA Exposure to other specified factors, initial encounter
CPT/HCPCS: 96374; 99283; J1200

== ENCOUNTER 2022-04-13 01:22 | Emergency (ER) | payer MEDICAID ==
[2022-04-13] MEDS ORDERED: FAMOTIDINE 20 MG/2 ML VIAL IVP STA (02:17)
[2022-04-13] MEDS ORDERED: diphenhydrAMINE ELIXIR 25 MG/10 ML UDC PO STA (02:28)
--- NOTE | 2022-04-13 03:27 | ED Physician Documentation ---
PD LIMA HEENT - Stated complaint Stated Complaint: SWOLLEN THROAT - Chief complaint Chief Complaint: Heent - History obtained from History obtained from: Patient - Additional information Additional information: Patient is a 52-year-old male with a history of recurrent angioedema presenting for evaluation of feeling swelling in his throat that woke him up from his sleep this evening. Patient has dexamethasone at home and initially took 2 doses of 4 mg Tablets, he subsequently took an additional two 4mg tablets (total dexamethasone prior to arrival tonight = 16mg) And 25 mg p.o. Benadryl When he did not feel things were improving.He did have a work-up in the past as several years ago he had frequent episodes of this without clear etiology.He says that he has dexamethasone at home and when he feels symptoms coming on often takes a dose or 2 and can prevent it from getting worse.This evening he felt like the swelling was not improving prompting him to come to the emergency department for evaluation. He denies difficulty breathing or swallowing. His speech feels normal to him.He denies recent illness.He does not take an YESENIA inhibitor or any regular medications.He reports last having an episode last week where his lip was swollen and he used dexamethasone at home with improvement. Review of Systems Constitutional: denies: Fever Throat: denies: Sore throat Cardiac: denies: Chest pain / pressure Respiratory: denies: Dyspnea GI: denies: Abdominal Pain Musculoskeletal: denies: Back pain Neurologic: denies: Headache PD PAST MEDICAL HISTORY - Past Medical History Cardiovascular: None Respiratory: Other Neuro: None Endocrine/Autoimmune: None Derm: Other Other Past Medical History: angioedema from unknown cause - Past Surgical History Past Surgical History: Yes General: Other - Present Medications Home Medications: Ambulatory Orders Medication Instructions Recorded Confirmed dexAMETHasone [Decadron] 4 mg PO PRN PRN 04/13/22 04/13/22 - Allergies Allergies/Adverse Reactions: Allergies Allergy/AdvReac Type Severity Reaction Status Date / Time No Known Drug Allergies Allergy Verified 04/13/22 01:53 - Social History Does the pt smoke?: No Smoking Status: Never smoker Does the pt drink ETOH?: Yes Does the pt have substance abuse?: No - Immunizations Immunizations are current?: Yes Immunizations: TDAP current <10years - POLST Patient has POLST: No PD ED PE NORMAL - General General: Alert and oriented X 3, No acute distress, Well developed/nourished - HEENT HEENT: Atraumatic, Moist mucous membranes, Other (Mild uvular edema,Normal phonation, no tongue or lip edema) - Neck Neck: Supple, no meningeal sign - Cardiac Cardiac: RRR, No murmur - Respiratory Respiratory: No respiratory distress, Clear bilaterally - Abdomen Abdomen: Soft, Non tender, Non distended - Derm Derm: Warm and dry - Neuro Neuro: Normal speech Results - Vitals Vitals: Vital Signs - 24 hr 04/13/22 04/13/22 01:55 04:39 Temperature 36.9 C 36.4 C L Heart Rate 81 86 Respiratory 18 16 Rate Blood Pressure 159/103 H 141/83 H O2 Saturation 99 96 Oxygen O2 Source Room air - Labs Labs: Laboratory Tests 04/13/22 03:24 Group A Strep Rapid Negative PD MEDICAL DECISION MAKING - ED course Complexity details: reviewed results, re-evaluated patient, d/w patient ED course: Patient with a history of angioedema presenting for evaluation of oral swelling which appears to be primarily affecting the uvula. His speech is normal and he is tolerating secretions with no signs of labored breathing. A strep test is negative. Based on his history I suspect an allergic etiology versus infectious. Patient had already self treated with Decadron and Benadryl prior to arrival. I did administer further antihistamines. Patient was observed for several hours and continued to have improvement in his symptoms. Patient counseled on need for close follow-up with senior oracle developer and PCP. He is also advised on strict return precautions. 0320 - Patient feeling better, able to lay slightly more reclined. 0433 - Patient reports that his swelling feels like it is gone further down. On exam, There does appear to be slight decrease to the edema. He is able to lay further reclined than he was previously. Departure - Departure Disposition: 01 Home, Self Care Clinical Impression: Angioedema Condition: Stable Instructions: ED Angioedema, ED Uvulitis Comments: You are treated for angioedema. Please follow-up with your primary care doctor and senior oracle developer. If anytime you feel that your symptoms are worsening please return immediately to the emergency department. Discharge Date/Time: 04/13/22 04:39
[2022-04-13 03:39] LABS: RAPID STREP SCREEN Negative (Negative)
[2022-04-13 04:40] VITALS: BP 141/83
== END 2022-04-13 04:39 | disposition home or self-care (01) ==
LOC: ED 01:22
DX: T78.3XXA Angioneurotic edema, initial encounter (principal)
CPT/HCPCS: 87070; 87430; 96374; 99284; A9270

== ENCOUNTER 2023-12-01 08:57 | Emergency (ER) | payer MEDICAID ==
[2023-12-01 09:15] VITALS: BP 135/77; O2SAT 97
[2023-12-01] MEDS: lidocaine 1% 20 ML MDV SUBQ ONE (09:19)
--- NOTE | 2023-12-01 09:46 | ED Physician Documentation ---
History of Present Illness - Stated complaint Stated Complaint: LT INDEX FINGER LAC - Chief complaint Chief Complaint: General - History obtained from History obtained from: Patient - Additonal information Additional information: For about a week he has had a spot on the dorsal left index finger that he thinks is infected. At times had some drainage from it. No fevers. Has had 3 days of sore throat as well. He is up-to-date on tetanus. PD PAST MEDICAL HISTORY - Past Medical History Past Medical History: Yes Cardiovascular: None Respiratory: Other Neuro: None Endocrine/Autoimmune: None Derm: Other - Past Surgical History Past Surgical History: Yes General: Other - Present Medications Home Medications: Ambulatory Orders Medication Instructions Recorded Confirmed Mupirocin 2% Oint [Bactroban 2% 1 applic TOP BID #50 gm 12/01/23 Oint] cephALEXin [Keflex] 500 mg PO Q6H #28 cap 12/01/23 - Allergies Allergies/Adverse Reactions: Allergies Allergy/AdvReac Type Severity Reaction Status Date / Time erythromycin base Allergy Hives Verified 12/01/23 09:06 Sulfa (Sulfonamide Allergy Rash Verified 12/01/23 09:06 Antibiotics) - Social History Does the pt smoke?: No Smoking Status: Never smoker Does the pt drink ETOH?: Yes Does the pt have substance abuse?: No - Immunizations Immunizations are current?: Yes Immunizations: TDAP current <10years - POLST Patient has POLST: No PD ED PE NORMAL - Vitals Vital signs reviewed: Yes - General General: Alert and oriented X 3, No acute distress - HEENT HEENT: Other (Visualized portions of the oropharynx look normal.) - Extremities Extremities: Other (There is a small infected ulcer on the dorsum of the left index finger with mild surrounding cellulitis but full range of motion. Nothing to drain at this juncture.) - Neuro Neuro: Alert and oriented X 3, Normal speech Results - Vitals Vitals: Vital Signs - 24 hr 12/01/23 09:03 Temperature 36.4 C L Heart Rate 59 L Respiratory 20 Rate Blood Pressure 135/77 H O2 Saturation 97 Oxygen O2 Source Room air PD Medical Decision Making - ED course ED course: He has a sore throat but exam is unremarkable from that perspective. He does have some cellulitis of the finger and is started on Keflex. Departure - Departure Disposition: 01 Home, Self Care Clinical Impression: Cellulitis of finger of left hand Condition: Good Record reviewed to determine appropriate education?: Yes Instructions: Cellulitis Dc Prescriptions: Mupirocin 2% Oint [Bactroban 2% Oint] 1 applic TOP BID #50 gm cephALEXin [Keflex] 500 mg PO Q6H #28 cap Comments: I sent your prescription electronically to the [facility] in [place]. Return if you worsen.
[2023-12-01] MEDS: cephALEXin 250 MG CAPSULE PO STA (10:00)
== END 2023-12-01 10:30 | disposition home or self-care (01) ==
LOC: ED 08:57
DX: L03.012 Cellulitis of left finger (principal); J02.9 Acute pharyngitis, unspecified
CPT/HCPCS: 96372; 99283; A9270